=== PATIENT | male | born 1950 | race Caucasian/White ===

== ENCOUNTER 2021-03-26 14:12 | Observation (INO) | payer OTHER, SELFPAY ==
[2021-03-26] VITALS (7 sets, daily range): BP systolic 128–186; BP diastolic 71–111; PULSE 80–92; RESP 18; TEMP 36.6–36.9; O2SAT 95–98; BMI 20.6
--- NOTE | ~2021-03-26 | XR_ITS ---
EXAMINATION: XR CHEST CLINICAL INFORMATION: Ataxia. Question lung mass. COMPARISON: None TECHNIQUE: Frontal view of the chest was obtained. FINDINGS: Cardiac silhouette is normal in size. Lungs are well aerated. There is no lobar consolidation. No pleural effusion or pneumothorax. No gross osseous abnormality. XR/XR chest 1V IMPRESSION: No acute pulmonary pathology.
--- NOTE | ~2021-03-26 | MR_ITS ---
EXAMINATION: MRI BRAIN WITHOUT CONTRAST CLINICAL INFORMATION: Ataxia. COMPARISON: CT angiogram of the head and neck 03/27/2021. TECHNIQUE: Multiplanar MR imaging of the brain was performed without contrast. FINDINGS: There is gliosis and encephalomalacia involving the right posterior temporal lobe consistent with chronic changes of an old infarct. There are also multiple chronic bilateral cerebellar infarcts and numerous chronic small vessel ischemic changes throughout the periventricular white matter that most likely represent a chronic manifestation of small vessel ischemia. The gradient recalled echo sequence demonstrates a few punctate foci of magnetic susceptibility affect for instance within the right posterior temporal lobe, paramedian left occipital lobe, and the left putamen. These findings are nonspecific and could either represent chronic microhemorrhages or perhaps tiny cavernous malformations. No acute territorial infarct. Intracranial vascular flow voids are maintained. There is no intracranial mass effect or midline shift. No abnormal extra axial collision. Lateral and third ventricles are normal. Tonsils. Midline structures including the cervicomedullary junction are normal. No acute bone marrow signal changes. There is a trace left mastoid effusion. No active paranasal sinus disease. Globes and orbits are symmetric. MR/MR head/brain wo con IMPRESSION: No evidence of acute territorial infarct or hemorrhage. 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 There are also multiple chronic bilateral cerebellar infarcts and numerous chronic small vessel ischemic changes within the perivertebral white matter. A few tiny foci of susceptibility artifact within the right posterior temporal lobe, left paramedian occipital lobe, and left putamen are nonspecific. These findings most likely represent chronic microhemorrhages. The possibility of a tiny cavernous malformation within the right posterior temporal lobe and left occipital lobe is difficult to completely exclude on the basis of this examination.
--- NOTE | ~2021-03-26 | CT_ITS ---
EXAMINATION: CT HEAD WITHOUT CONTRAST CLINICAL INFORMATION: Ataxia COMPARISON: None TECHNIQUE: Contiguous axial imaging was performed from the skull base to vertex without intravenous administration of contrast. This CT examination was performed using dose optimization techniques as appropriate, variously including the following: *Automated exposure control *Adjustment of mA and/or kV according to patient size (this includes techniques or standardized protocols for targeted exams where dose is matched to indication/reason for exam; i.e. extremities or head) *Use of iterative reconstruction technique DLP: 140 mGy-cm FINDINGS: There is no midline shift. There is no mass effect. There is no hemorrhage. The basilar cisterns appear patent. The posterior fossa risk grossly within normal limits. No extra-axial collection. Scattered areas of decreased attenuation in the white matter consistent with areas of ischemic change. Possible area of infarct segmental right temporal occipital. Review of the bone windows shows aerated sinuses and mastoid air cells. CT/CT head/brain wo con IMPRESSION: No acute intracranial pathology. Moderate white matter ischemic change.
--- NOTE | ~2021-03-26 | CT_ITS ---
EXAMINATION: CT angio head neck CLINICAL INFORMATION: Weakness. COMPARISON: CT scan of the head 03/26/2021. TECHNIQUE: Catheter Builder images were obtained. A CT angiogram of the head and neck was performed in the arterial phase after the intravenous administration of 70 mL Omnipaque 350. Pre and delayed postcontrast images of the head were also obtained. MIP reconstructions were generated in multiple orientations at the acquisition workstation. Multiple three-dimensional surface rendered images and maximum intensity projection images were generated on a dedicated 3-D lab workstation. Arterial stenoses are measured in accordance with NASCET criteria or similar method if applicable. This CT examination was performed using dose optimization techniques as appropriate, including one or more of the following: Automated exposure control, iterative reconstruction, and adjustment of technique factors (mA and/or kVp) according to patient size (this includes techniques or standardized protocols for targeted exams where dose is matched to indication/reason for exam). Total exam dose-length product 2466 mGy-cm FINDINGS: Head: There is focal loss of summers-white matter differentiation within the right posterior temporal lobe best illustrated on axial image 25 of 55 series 5. Scattered chronic infarcts involving both cerebellar hemispheres and there are numerous foci of hypoattenuation throughout the periventricular white matter that most likely represent a chronic manifestation of small vessel ischemia. No acute hemorrhage or abnormal extra-axial collection. Postcontrast images reveal no abnormal mass or enhancement within the intradural compartment. Lateral and third ventricles are normal. No hydrocephalus. The calvarium and skull base are intact. Mastoid air cells and middle ear cavities are well aerated. No active paranasal sinus disease. CT angiogram neck: The aortic arch apex is normal. Origins of the major aortic branches are widely patent. Common carotid arteries are normal. Small amount of partially calcified atheromatous plaque involves both carotid bifurcations. No stenosis of the extracranial internal carotid arteries. Cervical segments of the vertebral arteries as well as their origins are patent. CT angiogram head: Intracranial internal carotid arteries are patent. There is a tiny infiltrate projecting contour abnormality arising from the supraclinoid segment of the right internal carotid artery best illustrated on axial image 383 of 1356 series 10 that may represent a tiny aneurysm measuring 1.5 mm from base apex. Intradural vertebral artery segments and basilar artery are normal. Anterior, middle, and posterior cerebral artery complexes are normal. No intracranial large vessel occlusion. Other: Soft tissues of the neck including the thyroid gland are normal. Visualized lung apices are clear. No acute osseous finding. There is advanced multilevel degenerative spondylosis of the cervical spine causing at least moderate canal stenosis at levels of C4-C5, C5-C6, and C6-C7. CT/CT angio head neck IMPRESSION: Focal loss of summers-white matter differentiation within the right posterior temporal lobe may represent an age indeterminant cortical infarct. A few chronic bilateral cerebellar infarcts are noted and there are numerous chronic small vessel ischemic changes within the periventricular white matter. No acute cranial hemorrhage. No abnormal intracranial mass or enhancement. The CT angiogram of the head and neck is unremarkable in that there is no stenosis of the cervical carotid or vertebral arteries. No intracranial large vessel occlusion. There is however a small contour abnormalities involving the undersurface of the right supraclinoid internal carotid artery represent a tiny aneurysm measuring 1.5 mm from base apex.
--- NOTE | 2021-03-26 15:11 | ECG_ITS ---
Test Reason : DIZZYNESS Blood Pressure : / mmHG Vent. Rate : 086 BPM Atrial Rate : 086 BPM P-R Int : 160 ms QRS Dur : 094 ms QT Int : 394 ms P-R-T Axes : 060 -46 072 degrees QTc Int : 471 ms Sinus rhythm with occasional Premature ventricular complexes Possible Left atrial enlargement Left anterior fascicular block Inferior infarct , age undetermined Abnormal ECG When compared with ECG of 19-SEP-2006 13:03, Inferior infarct present Referred By: Generic ED Physician Electronically Signed By:Tung Cueva
[2021-03-26 15:26] LABS: Basophils Absolute Auto 0.1 X10*3/uL (0.0-0.2); Basophils Percent Auto 0.6 % (0-2); Eosinophils Absolute Auto 0.2 X10*3/uL (0.0-0.4); Eosinophils Percent Auto 1.8 % (0-4); Hematocrit 42.4 % (42-52); Hemoglobin 14.6 g/dl (14.0-18.0); Imm Gran Pct Auto 1.1 % (0.0-0.4); Lymphocytes Absolute Auto 1.8 X10*3/uL (1.2-4.9); Lymphocytes Percent Auto 19.1 % (20-40); MANUAL DIFF FLAG NO; Mean Corpuscular HGB Conc 34.4 g/dl (31.0-36.0); Mean Corpuscular Hemoglobin 29.6 pg (27.0-33.0); Mean Platelet Volume 8.8 fL (9.4-12.4); Neutrophils Absolute Auto 6.2 X10*3/uL (2.0-8.3); Neutrophils Percent Auto 66.4 % (45-73); Platelet Count 168 X10*3/uL (160-400); Red Blood Count 4.93 X10*6/uL (4.60-5.80); Red Cell Distribution Width 13.7 % (11.0-16.0); White Blood Count 9.4 X10*3/uL (4.8-10.8)
[2021-03-26 15:48] LABS: Anion Gap 10 (12-20); Blood Urea Nitrogen 14 mg/dL (9-16); Calcium 8.2 mg/dL (8.4-10.2); Carbon Dioxide 28 mmol/L (22-29); Chloride 106 mmol/L (96-108); Creatinine Clr Calc Pharmacy 70.1; Estimated Glomerular Filt Rate > 60; Glucose Random 120 mg/dL (60-115); Potassium 3.5 mmol/L (3.3-5.1); Sodium 140 mmol/L (135-145)
[2021-03-26 15:54] LABS: Troponin-I High Sensitivity 24.4 ng/L (<3.5-35.0)
--- NOTE | 2021-03-26 16:13 | ED_ITS ---
HPI - Dizziness General Chief Complaint: Dizziness Stated Complaint: INCREASED WEAKNESS Time Seen by Provider: 03/26/21 16:13 Source: patient Mode of arrival: EMS Limitations: no limitations History of Present Illness HPI Narrative: Patient chronic smoker with no history significant past medical history does not take any medication sent by his primary care doctor for evaluation of weakness and ataxia patient been off balance for last 5 6 days before that he was using cane occasionally now he has to use a cane all the time and feel like he may fall if he does not use it. No headache no nausea no vomiting no chest pain or shortness of breath does not feel any muscle weakness just feel off balance no nausea no vomiting no fever no chills no muscle spasm no cough no significant weight loss no back pain Related Data Allergies Allergy/AdvReac Type Severity Reaction Status Date / Time No Known Allergies Allergy Verified 03/26/21 16:25 Review of Systems Review of Systems: Constitutional : No Weight loss, No Fever, No Chills ENT/Mouth : No sore throat, No Rhinorrhea Eyes: No Eye Pain, No Swelling Cardiovascular : No Chest Pain, no palpitations Respiratory : No Cough, No Sputum, no shortness of breath Gastrointestinal : no Nausea, No Vomiting, No Diarrhea, No abdominal Pain, no black stools Genitourinary : No Dysuria, No Urinary Frequency Musculoskeletal : No joint pain, No Myalgias, No Joint Swelling Skin : No Skin Lesions, No rash Neuro : + Weakness, No Numbness, No Dizziness, No Headache Psych : No Anxiety/Panic, No Depression Heme/Lymph: + Bruising, No Lymphadenopathy Endocrine : No Polyuria, No Polydipsia All other systems reviewed and are negative [facility] Social History Social History Alcohol intake: never Patient Tobacco Use Status: Current everyday Tobacco user Use of substances other than those prescribed or required for medical reasons: No Advance Directives: No Advance Directives Information Provided: Yes Physical Exam Vital Signs: Vital Signs: Last Vital Signs Temp 97.8 F 03/26/21 17:44 Pulse 89 03/26/21 22:08 Resp 18 03/26/21 22:08 BP 140/71 H 03/26/21 22:08 Pulse Ox 96 03/26/21 22:08 Body Mass Index 20.6 Appearance: Alert. Oriented X3. No acute distress. Eyes: PERRLA, No Nystagmus ENT: Pharynx normal. Oral Mucosa moist Neck: Normal inspection. Neck supple. CVS: Normal heart rate and rhythm. Pulses normal. Respiratory: No respiratory distress. Equal air entry bilateral, no wheezing/rales/rhonchi Abdomen: Soft and nontender. Bowel sounds are present, no mass palpable, no CVA tenderness Skin: Skin warm and dry. Normal skin color. Normal skin turgor. Extremities: No lower extremity edema. No calf tenderness decreased muscle mass in lower extremity Neuro: Oriented X 3. No motor deficit. No sensory deficit slight truncal ataxia+, cranial nerves II-XII intact no tremors, tone is normal MDM - Dizziness MDM Narrative Medical decision making narrative: Patient with significant ataxia for last 4- 5 days increased risk of fall plain CT head is negative for any stroke patient lives alone also has high blood pressure and elevated troponin denies any chest pain will admit patient for observation start on valsartan for blood pressure control plan for MRI in the morning Lab Data Attestation: I reviewed the patient's lab results. Result diagrams: 03/26/21 15:21 03/26/21 15:21 Labs: Lab Results 03/26/21 03/26/21 03/26/21 Range/Units 15:21 15:21 15:21 WBC 9.4 (4.8-10.8) X10*3/uL RBC 4.93 (4.60-5.80) X10*6/uL Hgb 14.6 (14.0-18.0) g/dl Hct 42.4 (42-52) % MCV 86.0 (80-98) fL MCH 29.6 (27.0-33.0) pg MCHC 34.4 (31.0-36.0) g/dl RDW 13.7 (11.0-16.0) % Plt Count 168 (160-400) X10*3/uL MPV 8.8 L (9.4-12.4) fL Immature Gran % (Auto) 1.1 H (0.0-0.4) % Neut % (Auto) 66.4 (45-73) % Lymph % (Auto) 19.1 L (20-40) % [place] % (Auto) 11.0 (2-11) % Eos % (Auto) 1.8 (0-4) % Baso % (Auto) 0.6 (0-2) % Lymph # (Auto) 1.8 (1.2-4.9) X10*3/uL [place] # (Auto) 1.0 (0.1-1.2) X10*3/uL Eos # (Auto) 0.2 (0.0-0.4) X10*3/uL Baso # (Auto) 0.1 (0.0-0.2) X10*3/uL Abs Immat Gran (auto) 0.10 H (0.00-0.03) X10*3/uL Absolute Neuts (auto) 6.2 (2.0-8.3) X10*3/uL Absolute Nucleated RBC 0.000 (0.0-0.012) X10*3/uL Nucleated RBC % (auto) 0.0 (0.0-0.2) /100WBC ESR (0-15) MM/HR Sodium 140 (135-145) mmol/L Potassium 3.5 (3.3-5.1) mmol/L Chloride 106 (96-108) mmol/L Carbon Dioxide 28 (22-29) mmol/L Anion Gap 10 L (12-20) BUN 14 (9-16) mg/dL Creatinine 0.97 (0.5-1.4) mg/dL Estim Creat Clear Calc 70.1 Estimated GFR > 60 Random Glucose 120 H (60-115) mg/dL Calcium 8.2 L (8.4-10.2) mg/dL Total Bilirubin 0.5 (0.0-1.0) mg/dL Direct Bilirubin 0.2 (0.0-0.5) mg/dL AST 17 (5-37) U/L ALT 17 (0-40) U/L Alkaline Phosphatase 82 (39-117) U/L Troponin I High Sens 24.4 (<3.5-35.0) ng/L Total Protein 5.0 L (6.5-8.0) g/dL Albumin 3.2 L (3.5-5.0) g/dL Vitamin B12 (200-900) pg/mL Folate (> or = 4.0) ng/mL Urine Color Urine Appearance Urine pH (5.0-8.0) Ur Specific Phyllis (1.005-1.025) Urine Protein (NEG-TRACE) MG/DL Urine Glucose (UA) (NEG) MG/DL Urine Ketones (NEG) MG/DL Urine Blood (NEG) Urine Nitrite (NEG) Ur Leukocyte Esterase (NEG) 03/26/21 03/26/21 03/26/21 Range/Units 15:21 15:24 19:01 WBC (4.8-10.8) X10*3/uL RBC (4.60-5.80) X10*6/uL Hgb (14.0-18.0) g/dl Hct (42-52) % MCV (80-98) fL MCH (27.0-33.0) pg MCHC (31.0-36.0) g/dl RDW (11.0-16.0) % Plt Count (160-400) X10*3/uL MPV (9.4-12.4) fL Immature Gran % (Auto) (0.0-0.4) % Neut % (Auto) (45-73) % Lymph % (Auto) (20-40) % [place] % (Auto) (2-11) % Eos % (Auto) (0-4) % Baso % (Auto) (0-2) % Lymph # (Auto) (1.2-4.9) X10*3/uL [place] # (Auto) (0.1-1.2) X10*3/uL Eos # (Auto) (0.0-0.4) X10*3/uL Baso # (Auto) (0.0-0.2) X10*3/uL Abs Immat Gran (auto) (0.00-0.03) X10*3/uL Absolute Neuts (auto) (2.0-8.3) X10*3/uL Absolute Nucleated RBC (0.0-0.012) X10*3/uL Nucleated RBC % (auto) (0.0-0.2) /100WBC ESR 2 (0-15) MM/HR Sodium (135-145) mmol/L Potassium (3.3-5.1) mmol/L Chloride (96-108) mmol/L Carbon Dioxide (22-29) mmol/L Anion Gap (12-20) BUN (9-16) mg/dL Creatinine (0.5-1.4) mg/dL Estim Creat Clear Calc Estimated GFR Random Glucose (60-115) mg/dL Calcium (8.4-10.2) mg/dL Total Bilirubin (0.0-1.0) mg/dL Direct Bilirubin (0.0-0.5) mg/dL AST (5-37) U/L ALT (0-40) U/L Alkaline Phosphatase (39-117) U/L Troponin I High Sens 22.2 (<3.5-35.0) ng/L Total Protein (6.5-8.0) g/dL Albumin (3.5-5.0) g/dL Vitamin B12 813 (200-900) pg/mL Folate 7.6 (> or = 4.0) ng/mL Urine Color Urine Appearance Urine pH (5.0-8.0) Ur Specific Phyllis (1.005-1.025) Urine Protein (NEG-TRACE) MG/DL Urine Glucose (UA) (NEG) MG/DL Urine Ketones (NEG) MG/DL Urine Blood (NEG) Urine Nitrite (NEG) Ur Leukocyte Esterase (NEG) 03/26/21 Range/Units 20:03 WBC (4.8-10.8) X10*3/uL RBC (4.60-5.80) X10*6/uL Hgb (14.0-18.0) g/dl Hct (42-52) % MCV (80-98) fL MCH (27.0-33.0) pg MCHC (31.0-36.0) g/dl RDW (11.0-16.0) % Plt Count (160-400) X10*3/uL MPV (9.4-12.4) fL Immature Gran % (Auto) (0.0-0.4) % Neut % (Auto) (45-73) % Lymph % (Auto) (20-40) % [place] % (Auto) (2-11) % Eos % (Auto) (0-4) % Baso % (Auto) (0-2) % Lymph # (Auto) (1.2-4.9) X10*3/uL [place] # (Auto) (0.1-1.2) X10*3/uL Eos # (Auto) (0.0-0.4) X10*3/uL Baso # (Auto) (0.0-0.2) X10*3/uL Abs Immat Gran (auto) (0.00-0.03) X10*3/uL Absolute Neuts (auto) (2.0-8.3) X10*3/uL Absolute Nucleated RBC (0.0-0.012) X10*3/uL Nucleated RBC % (auto) (0.0-0.2) /100WBC ESR (0-15) MM/HR Sodium (135-145) mmol/L Potassium (3.3-5.1) mmol/L Chloride (96-108) mmol/L Carbon Dioxide (22-29) mmol/L Anion Gap (12-20) BUN (9-16) mg/dL Creatinine (0.5-1.4) mg/dL Estim Creat Clear Calc Estimated GFR Random Glucose (60-115) mg/dL Calcium (8.4-10.2) mg/dL Total Bilirubin (0.0-1.0) mg/dL Direct Bilirubin (0.0-0.5) mg/dL AST (5-37) U/L ALT (0-40) U/L Alkaline Phosphatase (39-117) U/L Troponin I High Sens (<3.5-35.0) ng/L Total Protein (6.5-8.0) g/dL Albumin (3.5-5.0) g/dL Vitamin B12 (200-900) pg/mL Folate (> or = 4.0) ng/mL Urine Color YELLOW Urine Appearance CLEAR Urine pH 6.0 (5.0-8.0) Ur Specific Phyllis 1.025 (1.005-1.025) Urine Protein TRACE (NEG-TRACE) MG/DL Urine Glucose (UA) NEG (NEG) MG/DL Urine Ketones NEG (NEG) MG/DL Urine Blood NEG (NEG) Urine Nitrite NEG (NEG) Ur Leukocyte Esterase NEG (NEG) ECG Data Attestation: I personally reviewed and interpreted this ECG as follows: Interpretation: Normal sinus rhythm heart rate 86 beats per minute occasional PVCs poor progression of R-wave no acute ST T wave changes no acute ischemia Discharge Plan Discharge Clinical Impression: Unsteady gait Hypertension Qualifiers: Hypertension type: primary hypertension Qualified Code(s): I10 - Essential (primary) hypertension Patient Disposition: Admitted As Inpatient
--- NOTE | 2021-03-26 16:37 | PC.NURSE ---
Pt resting quietly in bed. denies headaches, thinners, falls. has mult bruises in mult stages of healing all over arms. no unilat neuro deficits. denies weakness in BLE's. Able to ambulate with a cane w/o great difficulty to BR but after a few steps looses balance and needs to catch himself. this happened again while in the BR. Pt denies that room is spinning. i just loose by balance.
[2021-03-26 16:42] LABS: Alanine Aminotransferase 17 U/L (0-40); Albumin Level 3.2 g/dL (3.5-5.0); Alkaline Phosphatase 82 U/L (39-117); Aspartate Amino Transferase 17 U/L (5-37); Bilirubin Direct 0.2 mg/dL (0.0-0.5); Bilirubin Total 0.5 mg/dL (0.0-1.0)
[2021-03-26 17:38] LABS: Folate 7.6 ng/mL (> or = 4.0); Vitamin B12 813 pg/mL (200-900)
[2021-03-26 17:50] LABS: Erythrocyte Sedimentation Rate 2 MM/HR (0-15)
[2021-03-26] MEDS: Valsartan 80 MG TABLET PO (19:02)
[2021-03-26] MEDS: Aspirin Enteric Coated 81 MG TABLET.DR 162 MG PO (19:02)
[2021-03-26 19:50] LABS: Troponin-I High Sensitivity 22.2 ng/L (<3.5-35.0)
[2021-03-26 20:09] LABS: Glucose Urine UA NEG (NEG); Leukocyte Esterase Urine NEG (NEG); Nitrite Urine NEG (NEG); Specific Gravity - Urine 1.025 (1.005-1.025); Urine Blood NEG (NEG); Urine Ketones NEG (NEG); Urine Protein TRACE MG/DL (NEG-TRACE)
[2021-03-26 20:12] LABS: Appearance Urine CLEAR; Color Urine YELLOW
[2021-03-26 22:28] LABS: COVID-19 Test Negative (Negative)
[2021-03-27] VITALS (7 sets, daily range): BP systolic 152–203; BP diastolic 90–173; PULSE 66–107; RESP 16–21; TEMP 36.4–36.8; O2SAT 94–99
--- NOTE | 2021-03-27 06:18 | PM.IMHP ---
History of Present Illness Date of Service: 03/26/21 Chief Complaint: Ataxia This is a 70-year-old male with a history of tobacco use who presents to the hospital with complaints of loss of balance for the past 3-4 days ago. Patient reports that her recurred spontaneously, with worsening symptoms , denies any slurred speech, no facial droop, reports some numbness and tingling on his left side, denies any change in vision, no chest pain or palpitations, no abdominal pain nausea or vomiting, no diarrhea constipation and no lower extremity edema. Patient reports no previous similar episode. Denies any headache. He reports that he follows with a PCP regularly and has not had any medical issues Vitals on arrival hemodynamically stable but shows stable with blood pressure of 1 80s/110s Labs on arrival unremarkable with normal vitamin B12 and folic acid levels Head CT showed no acute intracranial pathology, moderate white matter ischemic change Patient will be admitted for observation Review of Systems Review of Systems: Yes all other systems are reviewed and are negative PMFSH Social History Alcohol intake: never Patient Tobacco Use Status: Current everyday Tobacco user Use of substances other than those prescribed or required for medical reasons: No Advance Directives: No Advance Directives Information Provided: Yes Meds Allergies Allergy/AdvReac Type Severity Reaction Status Date / Time No Known Allergies Allergy Verified 03/26/21 16:25 Active Medications: Current Medications Generic Name Dose Route Start Last Admin Trade Name Freq PRN Reason Stop Dose Admin Acetaminophen 650 mg 03/26/21 22:00 Acetaminophen 325 Mg Tablet PO Q6H PRN Pain, Mild (Pain Scale 1-3) Docusate Sodium 100 mg 03/26/21 22:00 Docusate Sodium 100 Mg Capsule PO DAILY PRN Constipation Heparin Sodium (Porcine) 5,000 unit 03/26/21 22:00 03/27/21 02:14 Heparin Sodium,Porcine 5,000 Unit/Ml Vial SUBCUT Not Given Q12H [facility] Ondansetron HCl 4 mg 03/26/21 22:00 Ondansetron Hcl 4 Mg/2 Ml Vial IVPUSH Q8H PRN Nausea and Vomiting Sodium Chloride 3 ml 03/27/21 00:00 03/27/21 02:15 0.9 % Sodium Chloride Flush 3 Ml Syringe IVFLUSH Not Given QSHIFT [facility] Home Medications Medication Instructions Recorded Confirmed Last Taken Type No Known Home Meds 03/27/21 03/27/21 Unknown History Physical Exam Vital Signs and Narrative: Vital Signs: Last Vital Signs Temp 97.8 F 03/27/21 06:00 Pulse 74 03/27/21 06:00 Resp 21 H 03/27/21 06:00 BP 174/98 H 03/27/21 06:00 Pulse Ox 96 03/27/21 06:00 Body Mass Index 20.6 Const: General: cooperative and no acute distress Orientation/consciousness: patient oriented x3 Eyes: General: appearance normal, both eyes and all related structures Resp: Effort & Inspection: normal respiratory effort and able to speak in complete sentences Cardio: Rate: regular rate Rhythm: regular rhythm GI: Palpation (GI): Soft to palpation Auscultation: normal bowel sounds Skin: General skin exam: no rashes or lesions noted Neuro: Other: Finger to nose exam normal, has 4/5 strength in the left upper and lower extremity, 5/5 on the right, no sensory deficit. General: patient oriented x3 and CN's II-XI intact bilaterally Cognition (Neuro): normal cognition Extrem: General: Yes normal to inspection and Yes no pedal edema Results Labs CBC and Chem 7: 03/26/21 15:21 03/26/21 15:21 Labs: Laboratory Results - last 24 hr 03/26/21 03/26/21 03/26/21 15:21 15:21 15:21 MCV 86.0 MCH 29.6 MCHC 34.4 RDW 13.7 Plt Count 168 MPV 8.8 L Immature Gran % (Auto) 1.1 H Neut % (Auto) 66.4 Lymph % (Auto) 19.1 L [place] % (Auto) 11.0 Eos % (Auto) 1.8 Baso % (Auto) 0.6 Lymph # (Auto) 1.8 [place] # (Auto) 1.0 Eos # (Auto) 0.2 Baso # (Auto) 0.1 Abs Immat Gran (auto) 0.10 H Absolute Neuts (auto) 6.2 Absolute Nucleated RBC 0.000 Nucleated RBC % (auto) 0.0 ESR Anion Gap 10 L Estim Creat Clear Calc 70.1 Estimated GFR > 60 Random Glucose 120 H Calcium 8.2 L Total Bilirubin 0.5 Direct Bilirubin 0.2 AST 17 ALT 17 Alkaline Phosphatase 82 Troponin I High Sens 24.4 Total Protein 5.0 L Albumin 3.2 L Vitamin B12 Folate Urine Color Urine Appearance Urine pH Ur Specific [place] Urine Protein Urine Glucose (UA) Urine Ketones Urine Blood Urine Nitrite Ur Leukocyte Esterase COVID-19 (YESI) COVID-19 [facility] 03/26/21 03/26/21 03/26/21 15:21 15:24 19:01 MCV MCH MCHC RDW Plt Count MPV Immature Gran % (Auto) Neut % (Auto) Lymph % (Auto) [place] % (Auto) Eos % (Auto) Baso % (Auto) Lymph # (Auto) [place] # (Auto) Eos # (Auto) Baso # (Auto) Abs Immat Gran (auto) Absolute Neuts (auto) Absolute Nucleated RBC Nucleated RBC % (auto) ESR 2 Anion Gap Estim Creat Clear Calc Estimated GFR Random Glucose Calcium Total Bilirubin Direct Bilirubin AST ALT Alkaline Phosphatase Troponin I High Sens 22.2 Total Protein Albumin Vitamin B12 813 Folate 7.6 Urine Color Urine Appearance Urine pH Ur Specific [place] Urine Protein Urine Glucose (UA) Urine Ketones Urine Blood Urine Nitrite Ur Leukocyte Esterase COVID-19 (YESI) COVID-19 [facility] 03/26/21 03/26/21 20:03 22:07 MCV MCH MCHC RDW Plt Count MPV Immature Gran % (Auto) Neut % (Auto) Lymph % (Auto) [place] % (Auto) Eos % (Auto) Baso % (Auto) Lymph # (Auto) [place] # (Auto) Eos # (Auto) Baso # (Auto) Abs Immat Gran (auto) Absolute Neuts (auto) Absolute Nucleated RBC Nucleated RBC % (auto) ESR Anion Gap Estim Creat Clear Calc Estimated GFR Random Glucose Calcium Total Bilirubin Direct Bilirubin AST ALT Alkaline Phosphatase Troponin I High Sens Total Protein Albumin Vitamin B12 Folate Urine Color YELLOW Urine Appearance CLEAR Urine pH 6.0 Ur Specific [place] 1.025 Urine Protein TRACE Urine Glucose (UA) NEG Urine Ketones NEG Urine Blood NEG Urine Nitrite NEG Ur Leukocyte Esterase NEG COVID-19 (YESI) Negative COVID-19 [facility] See Note Imaging Radiologist's Impressions: Impressions Chest X-Ray 03/26/21 16:26 IMPRESSION: No acute pulmonary pathology. Head CT 03/26/21 16:26 IMPRESSION: No acute intracranial pathology. Moderate white matter ischemic change. Assessment and Plan (1) Unsteady gait: Status: Acute (2) Tobacco abuse: Status: Acute This is a 70-year-old male with no significant past medical history presents to the hospital with complaints of unsteady gait will be admitted for observation to rule out CVA # ataxia - possibly secondary to acute stroke - CT head negative - B12 and folic acid normal - has some weakness of left upper lower extremity with strength being 4/5, no other neurological deficits - will obtain CT angiogram of head and neck, MRI of the brain - consult neurology # hypertension - possibly secondary to acute CVA - denies any history of hypertension - will allow his blood pressure and treat if SBP reaches above 180 # tobacco abuse - smokes about 1 pack per day - refuses nicotine replacement therapy DVT prophylaxis: Heparin subQ Quality Stroke Does the patient have a stroke diagnosis?: No VTE Prior VTE?: No VTE Risk Level:: Medical - moderate - high VTE Device Contraindication: Treatment Not Indicated VTE Drug Contraindication: N/A - Med Ordered
[2021-03-27] MEDS: iohexoL 350 MG/ML 100 ML INFUS..BTL 70 ML IV (06:53)
--- NOTE | 2021-03-27 07:09 | PC.NURSE ---
pt received in [place], alert and oriented. Speech clear and cogherent. HODGE, follows commands. No respiratory distress noted. VS as charted. Awaiting MRI and further evaluation, bed assignment.
[2021-03-27 07:13] LABS: MANUAL DIFF FLAG NO
[2021-03-27 07:16] LABS: Basophils Absolute Auto 0.1 X10*3/uL (0.0-0.2); Basophils Percent Auto 0.6 % (0-2); Eosinophils Absolute Auto 0.1 X10*3/uL (0.0-0.4); Eosinophils Percent Auto 1.7 % (0-4); Hematocrit 44.4 % (42-52); Hemoglobin 14.9 g/dl (14.0-18.0); Imm Gran Pct Auto 1.3 % (0.0-0.4); Lymphocytes Absolute Auto 1.3 X10*3/uL (1.2-4.9); Lymphocytes Percent Auto 17.1 % (20-40); Mean Corpuscular HGB Conc 33.6 g/dl (31.0-36.0); Mean Corpuscular Hemoglobin 29.2 pg (27.0-33.0); Mean Corpuscular Volume 86.9 fL (80-98); Mean Platelet Volume 8.8 fL (9.4-12.4); Monocytes Absolute Auto 0.8 X10*3/uL (0.1-1.2); Monocytes Percent Auto 10.9 % (2-11); Neutrophils Absolute Auto 5.3 X10*3/uL (2.0-8.3); Neutrophils Percent Auto 68.4 % (45-73); Platelet Count 158 X10*3/uL (160-400); Red Blood Count 5.11 X10*6/uL (4.60-5.80); Red Cell Distribution Width 13.7 % (11.0-16.0); White Blood Count 7.7 X10*3/uL (4.8-10.8)
[2021-03-27 07:42] LABS: Anion Gap 8 (12-20); Blood Urea Nitrogen 10 mg/dL (9-16); Calcium 8.4 mg/dL (8.4-10.2); Carbon Dioxide 30 mmol/L (22-29); Chloride 106 mmol/L (96-108); Creatinine Clr Calc Pharmacy 71.6; Estimated Glomerular Filt Rate > 60; Glucose Random 102 mg/dL (60-115); Sodium 140 mmol/L (135-145)
--- NOTE | 2021-03-27 07:45 | PC.NURSE ---
verbal order from everett solomon to transport off monitor
--- NOTE | 2021-03-27 08:11 | MHC.MBSS ---
pt is alert and oriented. ate breakfast 100%. HODGE follows commands, speech clear and coherent. To MRI with tech off monitor per MD order Unsteadiness on feet (03/26/21) Tobacco use (03/26/21)
--- NOTE | 2021-03-27 09:24 | MHC.CM.PN ---
Met with patient in regards to discharge planning. Patient lives alone, uses a cane for mobility and has a home health aide through [facility]. Patient denies the need for additional services. PCP verified. Patient denies having a HCP. Information patient. Patient is not interested in completing one at this time. Patient had his 2nd Pfizer vaccine on 11/25. Obs notice explained and signed. Patient's son will tranpsort him home when medically stable. Continue to monitor for d/c needs.
--- NOTE | 2021-03-27 09:25 | PC.NURSE ---
pt returned from MRI covered in urine and stool. Pt cleaned, skin care provided, bed and clothing changed. Pt positioned for comfort.
[2021-03-27] MEDS: amLODIPine Besylate 10 MG TABLET PO (10:37)
[2021-03-27] MEDS: Heparin Sodium,Porcine 5,000 UNIT/ML VIAL 5000 UNIT SUBCUT ×2 (10:37→20:44)
[2021-03-27] MEDS: Nicotine 14 MG PATCH.TD24 TRANSDERMA (10:45)
--- NOTE | 2021-03-27 11:02 | MHC.STROKE ---
Addendum entered by Carolyn Kim RN 03/27/21 13:56: LDL = 66, RECOMMENDATION FOR STATIN THERAPY IS LDL > 70. I DID MEETI WITH THE PATIENT AND INFORM HIM. Original Note: I MET WITH THE PATIENT TODAY TO DISCUSS HIS STROKE RISK FACTORS AND MRI FINDINGS. HE DID NOT HAVE A NEW STROKE BUT HAS HAD SEVERAL PRIOR STROKES WHICH HE WAS SURPRISED. HE LIVES ALONE AND HAS NOT BEEN COMPLIANT WITH HIS MEDICATIONS. HE HAS A SOON AND DAUGHTER ANDREE AND DEMETRI. HE IS A SMOKER ALL HIS LIFE AND WOULD LIKE TO QUIT, HE SHOWED ME THAT HE WAS ALREADY STARTED ON A NICOTINE PATCH. HE PASSED HIS SWALLOW SCREEN. HE BECAME VERY EMOTIONAL AND BEGAN TEARING UP. HE FEELS ALONE AND OVERWHELMED AT TIMES. I DID REPORT THIS TO THE PA AND SHE MAY CONSIDER ORDERING HIM AN ANTIDEPRESSANT. I EXPLAINED THAT HIS BP WAS OUT OF RANGE AND WHAT HE COULD DO TO IMPROVE, WHY HE NEEDS AN ASPIRIN, POSSIBLE STATIN, PT FOR REHAB GAIT AND BALANCE. ALL STROKE MEASURES MET. I WILL CONTINUE TO FOLLOW.
[2021-03-27 11:40] LABS: Cholesterol 121 mg/dL; HDL Cholesterol 37 mg/dL; LDL Cholesterol Calculated 66 mg/dl; Triglycerides 94 mg/dL
[2021-03-27] MEDS: 0.9 % Sodium Chloride Flush 3 ML SYRINGE IVFLUSH ×2 (11:48→17:23)
--- NOTE | 2021-03-27 12:00 | MHC.STROKEDC ---
As part of Stroke Prevention: Your individual Risk Factors Include High Blood Pressure, Smoking, Prior Strokes, Sedentary Lifestyle. It is important to take all of your prescribed medications such as, Blood Pressure medications, aspirin, and continue not to smoke. Follow up with your Primary Care Provider/MD. Immediately seek medical attention if any stroke symptoms return, call EMS/[phone].
--- NOTE | 2021-03-27 12:10 | HO.PM.IMPN ---
Subjective Subjective Date of Service: 03/27/21 Interval History: seen and examined this morning follow up for ataxia ?cva reports feeling off balance for the past 4-5 days denies known history of stroke no other complaints at this time Review of Systems Review of Systems: Yes all other systems are reviewed and are negative Constitutional Constitutional: Denies chills and Denies fever(s) Cardiovascular Cardiovascular: Denies chest pain Respiratory Respiratory: Denies cough Gastrointestinal Gastrointestinal: Denies abdominal pain Physical Exam Vital Signs: Vital Signs: Last Vital Signs Temp 97.6 F 03/27/21 11:37 Pulse 83 03/27/21 11:37 Resp 18 03/27/21 11:37 BP 170/90 H 03/27/21 11:37 Pulse Ox 99 03/27/21 11:37 Body Mass Index 20.6 Const: General: alert and awake Nutritional Appearance: well nourished and thin HENMT: Head: Yes normocephalic and Yes atraumatic Eyes: Sclerae: sclerae normal Resp: Effort & Inspection: normal respiratory effort and no respiratory distress Cardio: Rate: regular rate Rhythm: regular rhythm GI: Palpation (GI): Soft to palpation and nontender Neuro: Cranial nerves: Yes CN's II-XII intact bilaterally and Yes Bilaterally intact EOM present Objective Data Current Medications Generic Name Dose Route Start Last Admin Trade Name Juan Cq PRN Reason Stop Dose Admin Acetaminophen 650 mg 03/26/21 22:00 Acetaminophen 325 Mg Tablet PO Q6H PRN Pain, Mild (Pain Scale 1-3) Amlodipine Besylate 10 mg 03/27/21 10:30 03/27/21 10:37 Amlodipine Besylate 10 Mg Tablet PO 10 mg DAILY DC Administration Protocol Aspirin 81 mg 03/28/21 09:00 Aspirin Enteric Coated 81 Mg Tablet. PO DAILY DC Docusate Sodium 100 mg 03/26/21 22:00 Docusate Sodium 100 Mg Capsule PO DAILY PRN Constipation Heparin Sodium (Porcine) 5,000 unit 03/26/21 22:00 03/27/21 10:37 Heparin Sodium,Porcine 5,000 Unit/Ml Vial SUBCUT 5,000 unit Q12H DC Administration Nicotine 14 mg 03/27/21 10:45 03/27/21 10:45 Nicotine 14 Mg Patch.[id number] TRANSDERMA 14 mg DAILY DC Administration Ondansetron HCl 4 mg 03/26/21 22:00 Ondansetron Hcl 4 Mg/2 Ml Vial IVPUSH Q8H PRN Nausea and Vomiting Sodium Chloride 3 ml 03/27/21 00:00 03/27/21 11:48 0.9 % Sodium Chloride Flush 3 Ml Syringe IVFLUSH 3 ml QSHIFT DC Administration Labs CBC & Chem 7: 03/27/21 07:07 03/27/21 07:07 Labs: Laboratory Results - last 24 hr 03/26/21 03/26/21 03/26/21 15:21 15:21 15:21 WBC 9.4 RBC 4.93 Hgb 14.6 Hct 42.4 MCV 86.0 MCH 29.6 MCHC 34.4 RDW 13.7 Plt Count 168 MPV 8.8 L Immature Gran % (Auto) 1.1 H Neut % (Auto) 66.4 Lymph % (Auto) 19.1 L [place] % (Auto) 11.0 Eos % (Auto) 1.8 Baso % (Auto) 0.6 Lymph # (Auto) 1.8 [place] # (Auto) 1.0 Eos # (Auto) 0.2 Baso # (Auto) 0.1 Abs Immat Gran (auto) 0.10 H Absolute Neuts (auto) 6.2 Absolute Nucleated RBC 0.000 Nucleated RBC % (auto) 0.0 ESR Sodium 140 Potassium 3.5 Chloride 106 Carbon Dioxide 28 Anion Gap 10 L BUN 14 Creatinine 0.97 Estim Creat Clear Calc 70.1 Estimated GFR > 60 Random Glucose 120 H Calcium 8.2 L Total Bilirubin 0.5 Direct Bilirubin 0.2 AST 17 ALT 17 Alkaline Phosphatase 82 Troponin I High Sens 24.4 Total Protein 5.0 L Albumin 3.2 L Triglycerides Cholesterol LDL Cholesterol, Calc HDL Cholesterol Vitamin B12 Folate Urine Color Urine Appearance Urine pH Ur Specific [place] Urine Protein Urine Glucose (UA) Urine Ketones Urine Blood Urine Nitrite Ur Leukocyte Esterase COVID-19 (YESI) COVID-19 Clin Com 03/26/21 03/26/21 03/26/21 15:21 15:24 19:01 WBC RBC Hgb Hct MCV MCH MCHC RDW Plt Count MPV Immature Gran % (Auto) Neut % (Auto) Lymph % (Auto) [place] % (Auto) Eos % (Auto) Baso % (Auto) Lymph # (Auto) [place] # (Auto) Eos # (Auto) Baso # (Auto) Abs Immat Gran (auto) Absolute Neuts (auto) Absolute Nucleated RBC Nucleated RBC % (auto) ESR 2 Sodium Potassium Chloride Carbon Dioxide Anion Gap BUN Creatinine Estim Creat Clear Calc Estimated GFR Random Glucose Calcium Total Bilirubin Direct Bilirubin AST ALT Alkaline Phosphatase Troponin I High Sens 22.2 Total Protein Albumin Triglycerides Cholesterol LDL Cholesterol, Calc HDL Cholesterol Vitamin B12 813 Folate 7.6 Urine Color Urine Appearance Urine pH Ur Specific [place] Urine Protein Urine Glucose (UA) Urine Ketones Urine Blood Urine Nitrite Ur Leukocyte Esterase COVID-19 (YESI) COVID-19 Clin Com 03/26/21 03/26/21 03/27/21 20:03 22:07 07:07 WBC 7.7 RBC 5.11 Hgb 14.9 Hct 44.4 MCV 86.9 MCH 29.2 MCHC 33.6 RDW 13.7 Plt Count 158 L MPV 8.8 L Immature Gran % (Auto) 1.3 H Neut % (Auto) 68.4 Lymph % (Auto) 17.1 L [place] % (Auto) 10.9 Eos % (Auto) 1.7 Baso % (Auto) 0.6 Lymph # (Auto) 1.3 [place] # (Auto) 0.8 Eos # (Auto) 0.1 Baso # (Auto) 0.1 Abs Immat Gran (auto) 0.10 H Absolute Neuts (auto) 5.3 Absolute Nucleated RBC 0.000 Nucleated RBC % (auto) 0.0 ESR Sodium Potassium Chloride Carbon Dioxide Anion Gap BUN Creatinine Estim Creat Clear Calc Estimated GFR Random Glucose Calcium Total Bilirubin Direct Bilirubin AST ALT Alkaline Phosphatase Troponin I High Sens Total Protein Albumin Triglycerides Cholesterol LDL Cholesterol, Calc HDL Cholesterol Vitamin B12 Folate Urine Color YELLOW Urine Appearance CLEAR Urine pH 6.0 Ur Specific [place] 1.025 Urine Protein TRACE Urine Glucose (UA) NEG Urine Ketones NEG Urine Blood NEG Urine Nitrite NEG Ur Leukocyte Esterase NEG COVID-19 (YESI) Negative COVID-19 Clin Com See Note 03/27/21 03/27/21 07:07 11:03 WBC RBC Hgb Hct MCV MCH MCHC RDW Plt Count MPV Immature Gran % (Auto) Neut % (Auto) Lymph % (Auto) [place] % (Auto) Eos % (Auto) Baso % (Auto) Lymph # (Auto) [place] # (Auto) Eos # (Auto) Baso # (Auto) Abs Immat Gran (auto) Absolute Neuts (auto) Absolute Nucleated RBC Nucleated RBC % (auto) ESR Sodium 140 Potassium 4.0 Chloride 106 Carbon Dioxide 30 H Anion Gap 8 L BUN 10 Creatinine 0.95 Estim Creat Clear Calc 71.6 Estimated GFR > 60 Random Glucose 102 Calcium 8.4 Total Bilirubin Direct Bilirubin AST ALT Alkaline Phosphatase Troponin I High Sens Total Protein Albumin Triglycerides 94 Cholesterol 121 LDL Cholesterol, Calc 66 HDL Cholesterol 37 Vitamin B12 Folate Urine Color Urine Appearance Urine pH Ur Specific [place] Urine Protein Urine Glucose (UA) Urine Ketones Urine Blood Urine Nitrite Ur Leukocyte Esterase COVID-19 (YESI) COVID-19 Clin Com Quality Stroke Does the patient have a stroke diagnosis?: No VTE Prior VTE?: No VTE Risk Level:: Medical - moderate - high VTE Device Contraindication: Treatment Not Indicated VTE Drug Contraindication: N/A - Med Ordered Assessment and Plan (1) Unsteady gait: Status: Acute (2) Tobacco abuse: Status: Acute (3) Hypertension: Status: Acute Assessment and Plan: This is a 70-year-old male with no significant past medical history who presents to the hospital with complaints of unsteady gait will be admitted for observation to rule out CVA ataxia Brain MRI negative for acute stroke. Multiple areas of chronic infarction. B12 and folic acid normal -consult neurology -check lipid profile -ASA daily -PT eval for safe dispo hypertension Asymptomatic -will start Norvasc given negative MRI and significantly elevated BP -monitor blood pressure closely tobacco abuse - smoking cessation advised -NRT Thrombocytopenia mild DVT prophylaxis: Heparin subQ Attending: Dr. Villanueva Disposition: pt eval pending
--- NOTE | 2021-03-27 13:22 | P.CNNE_ITS ---
History of Present Illness Data of Consult Service Date: 03/27/21 Primary Care Provider: Jeannie Case MD HPI Reason for consult: Feeling off balance for 4-5 days This is a 70-year-old man with a history of untreated hypertension and tobacco abuse with one pack a day plus smoking habit who has not seen his physician in over a year and has not taking any medicine for his blood pressure. He comes in with for a five-day history of feeling off balance without any other specific complaints. Is not a very good historian and doesn't talk much. He admits to having some decline in his third and memory her not being as sharp as before. He is not known to have had a stroke in the past. He is no diabetes or hyp erlipidemia, coronary artery disease and takes no medication at home. 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 His CTA and does not show any major occlusive disease of any significance in the neck or intracranial circulation. Review of Systems Eyes: Eyes: Reports no additional eye complaints ENT: Reports system reviewed and no additional complaints, except as documented and Reports Normal hearing present Cardiovascular: Cardiovascular: Reports no additional cardiovascular complaints Respiratory: Respiratory: Reports no additional respiratory complaints Gastrointestinal: Gastrointestinal: Reports no additional gastrointestinal complaints Genitourinary: Genitourinary: Reports no additional male genitourinary complaints Musculoskeletal: Musculoskeletal: Reports no additional musculoskeletal complaints Integumentary/Breasts: Skin/Breast: Reports system reviewed and no additional complaints, except as docu Neurologic: Reports as per HPI and Reports Normal hearing present Psychiatric: Psychiatric: Reports as per HPI Endocrine: Endocrine: Reports no additional endocrine complaints Hematologic/Lymphatic: Hematologic/Lymphatic: Reports no additional hematologic/lymphatic complaints Allergic/Immunologic: Allergic/Immunologic: Reports no additional allergic/immunologic complaints [facility] Social History Social History Alcohol intake: never Patient Tobacco Use Status: Current everyday Tobacco user Use of substances other than those prescribed or required for medical reasons: No Advance Directives: No Advance Directives Information Provided: Yes service: No Current occupational status: retired Meds Allergies Allergy/AdvReac Type Severity Reaction Status Date / Time No Known Allergies Allergy Verified 03/26/21 16:25 Active Medications: Current Medications Generic Name Dose Route Start Last Admin Trade Name Freofe PRN Reason Stop Dose Admin Acetaminophen 650 mg 03/26/21 22:00 Acetaminophen 325 Mg Tablet PO Q6H PRN Pain, Mild (Pain Scale 1-3) Amlodipine Besylate 10 mg 03/27/21 10:30 03/27/21 10:37 Amlodipine Besylate 10 Mg Tablet PO 10 mg DAILY DC Administration Protocol Aspirin 81 mg 03/28/21 09:00 Aspirin Enteric Coated 81 Mg Tablet.Dr PO DAILY DC Docusate Sodium 100 mg 03/26/21 22:00 Docusate Sodium 100 Mg Capsule PO DAILY PRN Constipation Heparin Sodium (Porcine) 5,000 unit 03/26/21 22:00 03/27/21 10:37 Heparin Sodium,Porcine 5,000 Unit/Ml Vial SUBCUT 5,000 unit Q12H DC Administration Nicotine 14 mg 03/27/21 10:45 03/27/21 10:45 Nicotine 14 Mg Patch.Td24 TRANSDERMA 14 mg DAILY DC Administration Ondansetron HCl 4 mg 03/26/21 22:00 Ondansetron Hcl 4 Mg/2 Ml Vial IVPUSH Q8H PRN Nausea and Vomiting Sodium Chloride 3 ml 03/27/21 00:00 03/27/21 11:48 0.9 % Sodium Chloride Flush 3 Ml Syringe IVFLUSH 3 ml QSHIFT DC Administration Home Medications Medication Instructions Recorded Confirmed Last Taken Type No Known Home Meds 03/27/21 03/27/21 Unknown History Physical Exam Vital Signs: Vital Signs: Last Vital Signs Temp 97.6 F 03/27/21 11:37 Pulse 83 03/27/21 12:09 Resp 18 03/27/21 11:37 BP 170/90 H 03/27/21 12:09 Pulse Ox 99 03/27/21 12:09 Body Mass Index 20.6 Const: General: cooperative, comfortable, no acute distress, well developed, alert and awake Nutritional Appearance: well nourished Orientation/consciousness: oriented to person, oriented to place and oriented to time Limitations: no limitations HENMT: Head: Yes normal to inspection, Yes normocephalic and Yes atraumatic Ears: hearing grossly normal bilaterally General nose exam: Normal external nose present Face and sinus: Yes normal facial exam Mouth: Normal oral and palatal mucosa present Eyes: General: appearance normal, both eyes and all related structures Visual Cohen: normal visual cohen by confrontation Alignment and Position: alignment normal Periorbital: periorbital findings normal Eyelids: Yes eyelids normal Conjunctivae: conjunctivae normal Sclerae: sclerae normal Corneas: corneas normal Pupils: Equal, round and reactive pupils present and Pupil accommodation reflex normal EOM: EOMs intact bilaterally Direct Ophthalmoscopy: normal light reflex Neck: Neck: Yes normal visual inspection, Yes full ROM and Yes no meningeal signs Thyroid: Thyroid normal Carotids: normal carotid upstroke and bounding pulses Chest: Chest palpation & inspection: normal inspection of the chest Resp: Effort & Inspection: normal respiratory effort Auscultation: clear to auscultation bilaterally Cardio: Rate: regular rate Rhythm: regular rhythm Heart sounds: S1 normal heart sound present and S2 normal heart sound present Peripheral pulses: Peripheral pulses 2+ throughout GI: Inspection: Yes normal to inspection Percussion: Yes normal to percussion Auscultation: normal bowel sounds Rectal Exam - Male: Yes deferred Back/Spine/Pelvis: Cervical Spine: normal cervical lordosis and cervical ROM normal Thoracic/Lumbar Spine: thoracic and lumbar spine normal to inspection Skin: General skin exam: no rashes or lesions noted Neuro: Other: Vague historian but does not verbalize much, but follows commands. Nonfocal exam with mild truncal ataxia General: oriented to person, oriented to place, oriented to time, gait normal, tone normal, moves all extremities, Normal light touch and pain sensation, no meningeal signs, no focal motor deficits, CN's II-XI intact bilaterally, normal sensation to monofilament and deep tendon reflexes 2+ bilaterally Cranial nerves: Yes CN's II-XII intact bilaterally, Yes Equal, round and reactive pupils present, Yes Bilaterally intact EOM present, Yes Nystagmus not present, Yes Normal facial strength present, Yes Midline tongue present, Yes Normal gag reflex present, Yes Symmetric palate elevation present, Yes Normal hearing present and Yes Ability to bilaterally rotate head present Cognition (Neuro): normal cognition Speech: Other speech findings present (Neuro) Gait exam (Neuro): Normal gait present Motor exam (neuro): 5/5 motor strength present throughout, Pronator motor function not present, no tremor noted, no asterixis, Motor fasciculations not present, Normal motor muscle tone present throughout and Motor abnormalities not present Sensory Exam: Bilaterally intact graphesthesia Deep tendon reflexes (DTR's): Right triceps reflex intensity grade: 2+, Left triceps reflex intensity grade: 2+, Rt Biceps (C5, C6): 2+, Left biceps reflex intensity grade: 2+, Right brachioradialis reflex intensity grade: 2+, Left brachioradialis reflex intensity grade: 2+, Right patellar reflex intensity grade: 2+, Left patellar reflex intensity grade: 2+, Right ankle reflex intensity grade: 2+ and Left ankle reflex intensity grade: 2+ Plantar Reflex Responses: downgoing: right, left and bilateral Coordination: [id number] test normal and [id number] test normal Pupils: Normal pupillary reactivity/response: bilateral Extrem: General: Yes normal to inspection, Yes normal exam except as noted and Yes no pedal edema Psych: Appearance: grossly normal Mental Status: mental status grossly n ormal Speech and movement: Normal speech and movement present and Clear s peech present Affect: normal affect Attitude: cooperative Thought process: Normal thought process present Results Labs CBC & Chem 7: 03/27/21 07:07 03/27/21 07:07 Labs: Short CBC 03/26/21 03/27/21 Range/Units 15:21 07:07 WBC 9.4 7.7 (4.8-10.8) X10*3/uL Hgb 14.6 14.9 (14.0-18.0) g/dl Hct 42.4 44.4 (42-52) % Plt Count 168 158 L (160-400) X10*3/uL [facility] 03/26/21 03/27/21 15:21 07:07 Sodium 140 140 Potassium 3.5 4.0 Chloride 106 106 Carbon Dioxide 28 30 H BUN 14 10 Creatinine 0.97 0.95 Calcium 8.2 L 8.4 Liver Function 03/26/21 Range/Units 15:21 Total Bilirubin 0.5 (0.0-1.0) mg/dL Direct Bilirubin 0.2 (0.0-0.5) mg/dL AST 17 (5-37) U/L ALT 17 (0-40) U/L Alkaline Phosphatase 82 (39-117) U/L Albumin 3.2 L (3.5-5.0) g/dL Urine 03/26/21 Range/Units 20:03 Urine Color YELLOW Urine Appearance CLEAR Urine pH 6.0 (5.0-8.0) Ur Specific [place] 1.025 (1.005-1.025) Urine Protein TRACE (NEG-TRACE) MG/DL Urine Glucose (UA) NEG (NEG) MG/DL Assessment and Plan (1) Cerebral microvascular disease: Status: Acute His MRI shows multiple lacunar infarcts and extensive white matter microvascular disease from untreated hypertension. His cognitive abilities and his unsteady gait seems to be directly related to this. He's had multiple lacunar infarcts in the cerebellum as well all of which are old. No acute findings as seen on the MRI. He has no significant vaso-occlusive disease in the large vessels or intracranial circulation. (2) Multiple lacunar infarcts: Status: Acute Aggressive treatment of blood pressure and stressing the importance of treating the blood pressure on an ongoing basis. [place] on stopping smoking (3) Unsteady gait: Status: Acute Physical therapy for gait and balance (4) Hypertension: Qualifiers: Hypertension type: primary hypertension Qualified Code(s): I10 - Essential (primary) hypertension Status: Acute Control of blood pressure to prevent progression of cerebral hypertensivve microvascular disease. Procedures Date of Service Date of Service: 03/27/21
[2021-03-27] MEDS: lisinopriL 20 MG TABLET PO (17:23)
[2021-03-28] VITALS (7 sets, daily range): BP systolic 152–187; BP diastolic 83–117; PULSE 86–97; RESP 14–18; TEMP 36.6–37.3; O2SAT 93–97
[2021-03-28] MEDS: 0.9 % Sodium Chloride Flush 3 ML SYRINGE IVFLUSH ×2 (02:32→08:36)
[2021-03-28] MEDS: Aspirin Enteric Coated 81 MG TABLET.DR PO (08:36)
[2021-03-28] MEDS: Heparin Sodium,Porcine 5,000 UNIT/ML VIAL 5000 UNIT SUBCUT (08:36)
[2021-03-28] MEDS: Nicotine 14 MG PATCH.TD24 TRANSDERMA (08:36)
[2021-03-28] MEDS: amLODIPine Besylate 10 MG TABLET PO (08:36)
[2021-03-28] MEDS: lisinopriL 20 MG TABLET PO (08:36)
--- NOTE | 2021-03-28 12:29 | HO.PM.IMPN ---
Subjective Subjective Date of Service: 03/28/21 <JOSUÉ Herrera - Last Filed: 03/28/21 12:36> 03/31/21 <Bin Douglass MD - Last Filed: 03/31/21 16:09> Interval History: seen and examined this morning no overnight events no complaints this morning <JOSUÉ Herrera - Last Filed: 03/28/21 12:36> Review of Systems Review of Systems: Yes all other systems are reviewed and are negative <JOSUÉ Herrera - Last Filed: 03/28/21 12:36> Constitutional Constitutional: Denies chills and Denies fever(s) <JOSUÉ Herrera - Last Filed: 03/28/21 12:36> Cardiovascular Cardiovascular: Denies chest pain <JOSUÉ Herrera - Last Filed: 03/28/21 12:36> Respiratory Respiratory: Denies cough <JOSUÉ Herrera - Last Filed: 03/28/21 12:36> Gastrointestinal Gastrointestinal: Denies abdominal pain <JOUSÉ Herrera - Last Filed: 03/28/21 12:36> Physical Exam Vital Signs: Vital Signs: Last Vital Signs Temp 98.2 F 03/28/21 12:00 Pulse 91 03/28/21 12:00 Resp 15 03/28/21 12:00 BP 167/90 H 03/28/21 12:00 Pulse Ox 93 03/28/21 12:00 Body Mass Index 20.6 <JOSUÉ Herrera - Last Filed: 03/28/21 12:36> Const: General: alert and awake <JOSUÉ Herrera - Last Filed: 03/28/21 12:36> Nutritional Appearance: well nourished and thin <JOSUÉ Herrera Last Filed: 03/28/21 12:36> HENMT: Head: Yes normocephalic and Yes atraumatic <JOSUÉ Herrera Last Filed: 03/28/21 12:36> Eyes: Sclerae: sclerae normal <JOSUÉ Herrera Last Filed: 03/28/21 12:36> Resp: Effort & Inspection: normal respiratory effort and no respiratory distress <JOSUÉ Herrera - Last Filed: 03/28/21 12:36> Cardio: Rate: regular rate <OJSUÉ Herrera Last Filed: 03/28/21 12:36> Rhythm: regular rhythm <JOSUÉ Herrera Last Filed: 03/28/21 12:36> GI: Palpation (GI): Soft to palpation and nontender <JOSUÉ Herrera Last Filed: 03/28/21 12:36> Neuro: Cranial nerves: Yes CN's II-XII intact bilaterally and Yes Bilaterally intact EOM present <JOSUÉ Herrera Last Filed: 03/28/21 12:36> Objective Data Current Medications Generic Name Dose Route Start Last Admin Trade Name Freq PRN Reason Stop Dose Admin Acetaminophen 650 mg 03/26/21 22:00 Acetaminophen 325 Mg Tablet PO Q6H PRN Pain, Mild (Pain Scale 1-3) Amlodipine Besylate 10 mg 03/27/21 10:30 03/28/21 08:36 Amlodipine Besylate 10 Mg Tablet PO 10 mg DAILY [facility] Administration Protocol Aspirin 81 mg 03/28/21 09:00 03/28/21 08:36 Aspirin Enteric Coated 81 Mg Tablet.Dr PO 81 mg DAILY DC Administration Docusate Sodium 100 mg 03/26/21 22:00 Docusate Sodium 100 Mg Capsule PO DAILY PRN Constipation Heparin Sodium (Porcine) 5,000 unit 03/26/21 22:00 03/28/21 08:36 Heparin Sodium,Porcine 5,000 Unit/Ml Vial SUBCUT 5,000 unit Q12H DC Administration Lisinopril 20 mg 03/27/21 16:35 03/28/21 08:36 Lisinopril 20 Mg Tablet PO 20 mg DAILY [facility] Administration Protocol Nicotine 14 mg 03/27/21 10:45 03/28/21 08:36 Nicotine 14 Mg Patch.Td24 TRANSDERMA 14 mg DAILY DC Administration Ondansetron HCl 4 mg 03/26/21 22:00 Ondansetron Hcl 4 Mg/2 Ml Vial IVPUSH Q8H PRN Nausea and Vomiting Sodium Chloride 3 ml 03/27/21 00:00 03/28/21 08:36 0.9 % Sodium Chloride Flush 3 Ml Syringe IVFLUSH 3 ml QSHIFT DC Administration <JOSUÉ Herrera - Last Filed: 03/28/21 12:36> Labs CBC & Chem 7: : 03/27/21 07:07 03/28/21 13:34 <JOSUÉ Herrera - Last Filed: 03/28/21 12:36> Quality Stroke Does the patient have a stroke diagnosis?: No <JOSUÉ Herrera - Last Filed: 03/28/21 12:36> VTE Prior VTE?: No <JOSUÉ Herrera - Last Filed: 03/28/21 12:36> VTE Risk Level:: Medical - moderate - high <JOSUÉ Herrera - Last Filed: 03/28/21 12:36> VTE Device Contraindication: Treatment Not Indicated <JOSUÉ Herrera - Last Filed: 03/28/21 12:36> VTE Drug Contraindication: N/A - Med Ordered <JOSUÉ Herrera - Last Filed: 03/28/21 12:36> Assessment and Plan (1) Unsteady gait: Status: Acute <JOSUÉ Herrera - Last Filed: 03/28/21 12:36> (2) Tobacco abuse: Status: Acute <OJSUÉ Herrera - Last Filed: 03/28/21 12:36> (3) Hypertension: Status: Acute <JOSUÉ Herrera - Last Filed: 03/28/21 12:36> (4) Multiple lacunar infarcts: Status: Acute <JOSUÉ Herrera - Last Filed: 03/28/21 12:36> Assessment and Plan: This is a 70-year-old male with no significant past medical history who presents to the hospital with complaints of unsteady gait for 5 days admitted for observation to rule out CVA ataxia likely related to chonic microvascular disease Brain MRI negative for acute stroke. Multiple areas of chronic infarction. No acute stroke B12 and folic acid normal seen by neurology LDL 66 -ASA daily -PT eval for safe dispo hypertension Blood pressure improving -continue norvasc and lisinopril -monitor blood pressure closely tobacco abuse - smoking cessation advised -NRT Thrombocytopenia mild DVT prophylaxis: Heparin subQ Attending: Dr. Villanueva Disposition: pt eval for safe disposition, likely rehab due to unsteady gait and frequent falls; pt agreeable <JOSUÉ Herrera - Last Filed: 03/28/21 12:36> I saw and examined patient and discussed finding, assessment, plan and disposition with midabel and jewel I agree with the above, except if otherwise stated <Bin Douglass MD - Last Filed: 03/31/21 16:09>
--- NOTE | 2021-03-28 13:07 | ECG_ITS ---
Test Reason : unsteady gait Blood Pressure : / mmHG Vent. Rate : 100 BPM Atrial Rate : 100 BPM P-R Int : 160 ms QRS Dur : 084 ms QT Int : 354 ms P-R-T Axes : 075 -59 078 degrees QTc Int : 456 ms Normal sinus rhythm Biatrial enlargement Left axis deviation Inferior infarct , age undetermined Abnormal ECG When compared to the previous EKG of No significant changes seen Referred By: Niyah Stern Electronically Signed By:Tung Cueva
--- NOTE | 2021-03-28 14:07 | PM.DS ---
DS: Providers Provider Date of Service: 03/28/21 <JOSUÉ Herrera - Last Filed: 03/28/21 15:02> Date of admission: 03/26/21 21:10 <JOSUÉ Herrera - Last Filed: 03/28/21 15:02> Primary care physician: Jeannie Case MD <JOSUÉ Herrera - Last Filed: 03/28/21 15:02> Consults: 03/26/21 22:00 Consult to Neurology Routine Consulting Provider: [facility] Reason for consultation: Ataxia Has provider been notified: No <JOSUÉ Herrera - Last Filed: 03/28/21 15:02> DS: Diagnosis Discharge Diagnosis (1) Cerebral microvascular disease: Status: Acute <JOSUÉ Herrera - Last Filed: 03/28/21 15:02> (2) Unsteady gait: Status: Acute <JOSUÉ Herrera - Last Filed: 03/28/21 15:02> (3) Tobacco abuse: Status: Acute <JOSUÉ Herrera - Last Filed: 03/28/21 15:02> (4) Hypertension: Status: Acute <JOSUÉ Herrera - Last Filed: 03/28/21 15:02> (5) Thrombocytopenia: Status: Acute <JOSUÉ Herrera - Last Filed: 03/28/21 15:02> (6) Multiple lacunar infarcts: Status: Acute <JOSUÉ Herrera - Last Filed: 03/28/21 15:02> DS: Medications Discharge Medications Home Medications: Home Medications Medication Instructions Recorded Confirmed No Known Home Meds 03/27/21 03/27/21 <JOSUÉ Herrera - Last Filed: 03/28/21 15:02> DS: Summary Hospital Course Hospital Course: From H&P on day of admission This is a 70-year-old male with a history of tobacco use who presents to the hospital with complaints of loss of balance for the past 3-4 days ago. Patient reports that her recurred spontaneously, with worsening symptoms , denies any slurred speech, no facial droop, reports some numbness and tingling on his left side, denies any change in vision, no chest pain or palpitations, no abdominal pain nausea or vomiting, no diarrhea constipation and no lower extremity edema. Patient reports no previous similar episode. Denies any headache. He reports that he follows with a PCP regularly and has not had any medical issues Vitals on arrival hemodynamically stable but shows stable with blood pressure of 1 80s/110s Labs on arrival unremarkable with normal vitamin B12 and folic acid levels Head CT showed no acute intracranial pathology, moderate white matter ischemic change Hospital course by problem: Ataxia: Patient was admitted to the hospital due to ataxia and falls. He underwent MRI of the brain which showed no acute stroke. It did show multiple old strokes including chronic bilateral cerebellar infarcts as well as diffuse microvascular disease likely in the setting of uncontrolled hypertension. CTA of the nead and neck showed no large vessel occlusion. 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 He was seen by Neurology who recommended blood pressure control. He was started on baby aspirin. He was seen by Physical therapy who recommended short-term rehab. Patient is amenable to rehab and will be discharged Uncontrolled HTN: Patient has a history of HTN. He has not seen a doctor in over year and has not been taking his blood pressure medication. Initially blood pressure was in 200 range. After MRI confirmed no acute stroke patient was started on oral amlodipine as well as lisinopril. Blood pressure has improved significantly but will likely need further titration as an outpatient. Thrombocytopenia. 158, mild. Should have periodic CBC to monitor Tobacco dependence. Smoking cessation has been advised. Can continue use of nicotine patch <JOSUÉ Herrera - Last Filed: 03/28/21 15:02> Time Spent with Patient Time attestation: Total time spent providing and/or coordinating discharge services: <JOSUÉ Herrera - Last Filed: 03/28/21 15:02> Discharge coordination time: Greater than 30 minutes <JOSUÉ Herrera - Last Filed: 03/28/21 15:02> Quality: Stroke Does the patient have a stroke diagnosis?: No <JOSUÉ Herrera - Last Filed: 03/28/21 15:02> Physical Exam Vital Signs: Vital Signs: Last Vital Signs Temp 98.2 F 03/28/21 12:00 Pulse 91 03/28/21 12:00 Resp 15 03/28/21 12:00 BP 167/90 H 03/28/21 12:00 Pulse Ox 93 03/28/21 12:00 Body Mass Index 20.6 <JOSUÉ Herrera - Last Filed: 03/28/21 15:02> Const: General: alert and awake <JOSUÉ Herrera - Last Filed: 03/28/21 15:02> Nutritional Appearance: well nourished and thin <JOSUÉ Herrera - Last Filed: 03/28/21 15:02> HENMT: Head: Yes normocephalic and Yes atraumatic <JOSUÉ Herrera - Last Filed: 03/28/21 15:02> Eyes: Sclerae: sclerae normal <JOSUÉ Herrera - Last Filed: 03/28/21 15:02> Resp: Effort & Inspection: normal respiratory effort and no respiratory distress <JOSUÉ Herrera - Last Filed: 03/28/21 15:02> Cardio: Rate: regular rate <JOSUÉ Herrera - Last Filed: 03/28/21 15:02> Rhythm: regular rhythm <JOSUÉ Herrera - Last Filed: 03/28/21 15:02> GI: Palpation (GI): Soft to palpation and nontender <JOSUÉ Herrera - Last Filed: 03/28/21 15:02> Neuro: Cranial nerves: Yes CN's II-XII intact bilaterally and Yes Bilaterally intact EOM present <JOSUÉ Herrera - Last Filed: 03/28/21 15:02> Discharge Plan Discharge Patient Disposition: Xfer SNF <JOSUÉ Herrera - Last Filed: 03/28/21 15:02> Discharge Diagnosis: Uncontrolled HTN Ataxia/falls Thrombocytopenia <JOSUÉ Herrera - Last Filed: 03/28/21 15:02> Uncontrolled HTN Ataxia/falls Thrombocytopenia <Bin Douglass MD - Last Filed: 03/31/21 16:11> Referrals: Jeannie Case MD [Primary Care Provider] - 1 Week <JOSUÉ Herrera - Last Filed: 03/28/21 15:02> Discharge Medications: New nicotine 14 mg/24 hr Patch 24 Hour 14 mg transdermal DAILY 14 Days Qty: 14 RF: 0 lisinopril 20 mg Tablet 20 mg PO DAILY 30 Days Qty: 30 RF: 0 aspirin 81 mg Tablet,Delayed Release (Dr/Ec) 81 mg PO DAILY 30 Days Qty: 30 RF: 0 amlodipine 10 mg Tablet 10 mg PO DAILY 30 Days Qty: 30 RF: 0 <JOSUÉ Herrera - Last Filed: 03/28/21 15:02> Discharge Orders: Discharge Order (Routine); Ordered 03/28/21 Ordered By: Niyah Stern <JOSUÉ Herrera - Last Filed: 03/28/21 15:02> Activity on Discharge: Use cane or walker <JOSUÉ Herrera - Last Filed: 03/28/21 15:02> Use cane or walker <Bin Douglass MD - Last Filed: 03/31/21 16:11> Care Plan Goals: prevent future strokes prevent future falls control blood pressure <JOSUÉ Herrera - Last Filed: 03/28/21 15:02> Health Concerns: Chronic strokes Unsteady gait Uncontrolled blood pressure Tobacco dependence <JOSUÉ Herrera - Last Filed: 03/28/21 15:02> Plan of Treatment: You have been started on lisinopril and amlodipine to control your blood pressure. Take your blood pressure medication as prescribed Recommend tobacco cessation. Can use nicotine patch Follow up with pcp after discharge from SNF <JOSUÉ Herrera - Last Filed: 03/28/21 15:02> Assessment: See discharge summary I saw and examined patient and discussed finding, assessment, plan and disposition with brice I agree with the above, except if otherwise stated <JOSUÉ Herrera - Last Filed: 03/28/21 15:02> Discharge Date/Time: 03/28/21 16:08 <JOSUÉ Herrera - Last Filed: 03/28/21 15:02>
--- NOTE | 2021-03-28 14:27 | MHC.CM.PN ---
HCP COMPLETED, NAMING DAUGHTER DEMETRI. COPY IN CHART AND UPLOADED TO [facility] PATIENT HAS ORIGINAL AND A COPY FOR DAUGHTER.
[2021-03-28 14:48] LABS: Anion Gap 14 (12-20); Blood Urea Nitrogen 14 mg/dL (9-16); Carbon Dioxide 27 mmol/L (22-29); Chloride 105 mmol/L (96-108); Estimated Glomerular Filt Rate > 60; Glucose Random 131 mg/dL (60-115); Magnesium 1.8 mg/dL (1.6-2.6); Potassium 3.9 mmol/L (3.3-5.1); Sodium 142 mmol/L (135-145)
--- NOTE | 2021-03-28 15:02 | MHC.CM.PN ---
PATIENT TO TRANSFER TO [facility]. PATIENT AND DAUGHTER DEMETRI ([phone]) AWARE OF PLAN. [facility] TO TRANSPORT. RN AND UNIT AWARE OF PLANNED 1530 TRANSPORT TIME.
== END 2021-03-28 16:08 | disposition skilled nursing facility (03) ==
LOC: HO.ED 20:36 → HO.EDOVER 22:28 → HO.S3 03-27 09:09
PROVIDERS: Physician Assistant Medical; Admitting Provider Internal Medicine; Emergency Provider Internal Medicine; PCP Internal Medicine; Visit Provider Internal Medicine
DX: R26.81 Unsteadiness on feet (principal); R53.1 Weakness; I10 Essential (primary) hypertension; R90.82 White matter disease, unspecified; G93.89 Other specified disorders of brain; F03.90 Unspecified dementia, unspecified severity, without behavioral disturbance, psychotic disturbance, mood disturbance, and anxiety; I67.89 Other cerebrovascular disease; I63.81 Other cerebral infarction due to occlusion or stenosis of small artery; I49.3 Ventricular premature depolarization; I44.4 Left anterior fascicular block; D69.6 Thrombocytopenia, unspecified; R94.31 Abnormal electrocardiogram [ECG] [EKG]; Z20.822 Contact with and (suspected) exposure to COVID-19; Z72.0 Tobacco use; Z79.82 Long term (current) use of aspirin; Z79.899 Other long term (current) drug therapy
CPT/HCPCS: 36415; 70450; 70496; 70498; 70551; 71045; 80048; 80061; 80076; 81003; 82607; 82746; 83735; 84484; 85025; 85652; 87635; 93005; 96374; 97116; 97161; 97530; 99218; 99285; Q9967